=== PATIENT | female | born 1990 | race American Indian/Alaskan Native ===

== ENCOUNTER 2021-01-29 01:48 | Emergency (ER) | payer OTHER ==
[~2021-01-29] VITALS: Ht 177.8 cm; Wt 122.0 kg
[2021-01-29 02:19] LABS: BASOPHILS # (AUTO) 0.1 X10'3 (0-0.2); BASOPHILS % (AUTO) 0.6 % (0-1); EOSINOPHILS # (AUTO) 0.2 X10'3 (0-0.9); EOSINOPHILS % (AUTO) 1.6 % (0-6); HEMATOCRIT 39.8 % (35.0-45.0); HEMOGLOBIN 13.5 g/dl (12.0-16.0); LYMPHOCYTES # (AUTO) 3.9 X10'3 (1.1-4.8); LYMPHOCYTES % (AUTO) 39.6 % (21-51); MEAN CORPUSCULAR HEMOGLOBIN 31.4 PG (27.0-31.0); MEAN CORPUSCULAR VOLUME 92.4 FL (78-98); MEAN PLATELET VOLUME 9.6 FL (7.4-10.4); MONOCYTES # (AUTO) 0.5 X10'3 (0-0.9); MONOCYTES % (AUTO) 5.2 % (2-12); NEUTROPHILS # (AUTO) 5.2 X10'3 (1.8-7.7); PLATELET COUNT 203 X10'3 (140-440); RED BLOOD COUNT 4.31 X10'6 (4.20-5.60); RED CELL DISTRIBUTION WIDTH 13.3 % (11.5-14.5); WHITE BLOOD COUNT 9.8 X10'3 (4.5-11.0)
[2021-01-29 02:29] LABS: ALANINE AMINOTRANSFERASE 43 U/L (12-78); ALBUMIN 3.7 G/DL (3.4-5.0); ALBUMIN/GLOBULIN RATIO 0.9 (1.1-1.5); ALKALINE PHOSPHATASE 86 IU/L (46-116); ANION GAP 11 (8-16); ASPARTATE AMINO TRANSFERASE 46 U/L (10-37); BILIRUBIN,TOTAL 0.3 MG/DL (0.1-1.0); BLOOD UREA NITROGEN 15 MG/DL (7-18); BUN/CREATININE RATIO 16.7 (6.6-38.0); CALCIUM 8.3 MG/DL (8.5-10.1); CHLORIDE 106 MMOL/L (99-107); GLUCOSE 127 MG/DL (70-104); LIPASE 80 U/L (73-393); POTASSIUM 3.4 MMOL/L (3.5-5.1); SODIUM 143 MMOL/L (135-145); eGFR 74 ML/MIN
[2021-01-29] MEDS ORDERED: NO HOME MEDS (02:30)
[2021-01-29] MEDS ORDERED: metoprolol tartrate 12.5mg (1/2 tablet) PO ONE (02:40)
[2021-01-29] MEDS ORDERED: famotidine/PF 10 mg/ml inj IV ONE (02:40)
[2021-01-29] MEDS ORDERED: ondansetron/PF 4mg/2ml inj IV ONE (02:40)
[2021-01-29] MEDS ORDERED: metoprolol tartrate 1mg/ml inj IV ONE (02:40)
[2021-01-29] MEDS ORDERED: pantoprazole 40 MG vial IV ONE (02:40)
[2021-01-29] MEDS ORDERED: normal saline 1000ml 1,000 ML IV ONE (02:40)
[2021-01-29] MEDS ORDERED: mag hydrox/Alum hydrox/simeth 30ml oral suspension PO ONE (02:45)
[2021-01-29] MEDS ORDERED: ONDA4TAB6 PO (03:20)
[2021-01-29 03:40] VITALS: BP 107/68
== END 2021-01-29 03:43 | disposition home or self-care (01) ==
LOC: ER 01:50
DX: K52.9 Noninfective gastroenteritis and colitis, unspecified (principal); Z88.8 Allergy status to other drugs, medicaments and biological substances; Z79.899 Other long term (current) drug therapy
CPT/HCPCS: 36415; 80053; 83690; 85025; 96361; 96374; 96375; 99284; C9113; J2405; J3490; J7030

== ENCOUNTER 2022-08-07 23:32 | Emergency (ER) | payer MEDICAID ==
[~2022-08-07] VITALS: Ht 177.8 cm; Wt 127.3 kg
[~2022-08-07 23:32] MED LIST: NO HOME MEDS; ONDA4TAB6 PO
[2022-08-07 23:36] VITALS: BP 168/119
[2022-08-07] MEDS: normal saline 1000ML IV soln IVB STA (23:49)
[2022-08-07] MEDS ORDERED: methylPREDNISolone sod succ 125mg/2ml vial IV ONE (23:50)
[2022-08-07] MEDS ORDERED: famotidine/PF 10 mg/ml inj IV ONE (23:50)
[2022-08-08] MEDS ORDERED: EPIN0.3P3 IM (01:43)
== END 2022-08-08 02:16 | disposition home or self-care (01) ==
LOC: ER 23:32
DX: T78.40XA Allergy, unspecified, initial encounter (principal); Y92.89 Other specified places as the place of occurrence of the external cause; Z88.0 Allergy status to penicillin; Z79.899 Other long term (current) drug therapy
CPT/HCPCS: 96374; 96375; 99284; J2930; J3490; J7030